=== PATIENT | female | born 1990 | race African-American/Black ===

== ENCOUNTER 2018-08-05 09:47 | Emergency (ER) | payer OTHER ==
[~2018-08-05] VITALS: Ht 162.6 cm; Wt 63.5 kg
[~2018-08-05 09:47] MED LIST: FLAGYL500 MG PO; FLEXERIL PO; NORCO 5-325 TA1 EACH PO
[2018-08-05 11:10] VITALS: BP 119/76
--- NOTE | 2018-08-06 09:15 | EKG ---
[place] [address] [place] [address] ELECTROCARDIOGRAM REPORT Name: ODELL REZA Room #: DEP Sowmya#: [id number] ������������������ Admission: 08/05/18 ������������������ Attend Phys: Discharge: 08/05/18 ������������������ Date of : 89 Report #: [id number] ����������������������������������������������������������������� [id number] THIS REPORT FOR: //name// [facility] ED Test Date: 2018-08-05 Test Time: 10:03:13 Pat Name: ODELL REZA Department: Room: Gender: F Background Investigator: [facility] : 1990 Requested By: Howie Ashford Order Number: [id number] MD: Garret Mack Measurements Intervals [place] Rate: 67 P: 52 [place]: 143 QRS: 58 QRSD: 75 T: 27 QT: 405 QTc: 428 Interpretive Statements Sinus rhythm RSR' in V1 or V2, probably normal variant No previous ECG available for comparison Electronically Signed On 08-06-2018 9:14:56 CDT by Garret Mack [email or web address] ��������������������������������������������� <ELECTRONICALLY SIGNED> ���������������������������������������� By: Garret Mack MD, [facility] ��������������������������������������������� 08/06/18 0914 1003 1003 Garret Mack MD, FACC /EPI
== END 2018-08-05 12:02 | disposition home or self-care (01) ==
LOC: ER 09:47
DX: R07.89 Other chest pain (principal); Z88.6 Allergy status to analgesic agent